=== PATIENT | male | born 1985 | race Caucasian/White ===

== ENCOUNTER 2016-09-18 16:58 | Emergency (ER) | payer OTHER ==
[~2016-09-18] VITALS: Ht 180.3 cm; Wt 160.3 kg
[2016-09-18 17:35] VITALS: BP 140/80
--- NOTE | 2016-09-18 19:17 | NUR ---
Patient ambulated to bed 3. RN evaluating patient at bedside.
--- NOTE | 2016-09-18 19:23 | NUR ---
31 Y/O M W/C/O L LOWER ABD PAIN WHICH RADIATES TO L LOWER BACK X 3 DAYS. DENIES ANY FEVER, CHILLS OR PAIN WITH URINATION. NO MED HX. NO S/S OF DISTRESS NOTED, ER MADE AWARE.
[2016-09-18] MEDS ORDERED: HYDROcodone/APAP 5/325 MG 1 TAB TAB PO ONE (19:50)
[2016-09-18] MEDS ORDERED: KETOROLAC 30 MG/ML VIAL IM ONE (19:50)
--- NOTE | 2016-09-18 20:03 | NUR ---
PT TAKEN FOR CT.
[2016-09-18 20:12] LABS: APPEARANCE,URINE CLOUDY (CLEAR); BILIRUBIN,URINE NEGATIVE (NEGATIVE); BLOOD, URINE 3+ (NEGATIVE); COLOR,URINE YELLOW (YELLOW); LEUKOCYTE ESTERASE ,URINE NEGATIVE (NEGATIVE); NITRITE, URINE NEGATIVE (NEGATIVE); PROTEIN,URINE 1+ (NEGATIVE); UGLUCOSE NEGATIVE (NEGATIVE); UROBILINOGEN,URINE 0.2 EU/dL (0.2 - 1)
[2016-09-18 20:18] LABS: BACTERIA,URINE 1-9 (FEW) /HPF (None Seen); RBC,URINE >100 /HPF (0-5); SQUAMOUS EPITHELIAL CELL,UR 0-3 (FEW) /LPF (0-3 (FEW))
--- NOTE | 2016-09-18 20:18 | NUR ---
MOVED TO ER BED 4
[2016-09-18] MEDS ORDERED: NACL 0.9% 1,000 ML IV ONE (20:40)
[2016-09-18] MEDS ORDERED: fentaNYL 0.05 MG/ML VIAL IVP ONE (20:40)
[2016-09-18] MEDS ORDERED: metroNIDAZOLE 500 MG/NS PREMIX 100 ML IV ONE (20:40)
[2016-09-18] MEDS ORDERED: KETOROLAC 30 MG/ML VIAL IVP ONE (20:40)
[2016-09-18 21:05] LABS: BASOPHILS # (AUTO) 0.4 K/uL (0.00-0.22); EOSINOPHILS # (AUTO) 0.2 K/uL (0-0.4); EOSINOPHILS % (AUTO) 2.2 % (0.0-4.0); HEMOGLOBIN 15.6 g/dL (12.0-18.0); LYMPHOCYTES # (AUTO) 2.4 K/uL (2.0-11.5); LYMPHOCYTES % (AUTO) 23.1 % (20.5-51.1); MEAN CORPUSCULAR HEMOGLOBIN 30 pg (27-31); MEAN CORPUSCULAR HGB CONC 33 g/dL (33-37); MEAN CORPUSCULAR VOLUME 93 fL (80-94); MONOCYTES % (AUTO) 9.9 % (1.7-9.3); NEUTROPHILS # (AUTO) 6.2 K/uL (1.8-7.7); PLATELET COUNT (AUTO) 259 K/uL (140-450); RED BLOOD CELL COUNT(AUTO) 5.15 MIL/uL (4.20-6.10); RED CELL DISTRIBUTION WIDTH 13.3 % (11.6-13.7); WHITE BLOOD COUNT (AUTO) 10.2 K/uL (4.8-10.8)
[2016-09-18 21:14] LABS: ANION GAP 10.8 (8-16); CALCIUM 8.7 mg/dL (8.5-10.1); CARBON DIOXIDE 30.5 mmol/L (21-32); CREATININE 1.2 mg/dL (0.7-1.3); POTASSIUM 4.3 mmol/L (3.5-5.1)
--- NOTE | 2016-09-18 21:15 | NUR ---
PT RESTING IN BED, VSS, CURRENTLY RECEIVING IV MEDS. NO S/S OF DISTRESS NOTED AT THE MOMENT.
[2016-09-18 21:21] LABS: ALBUMIN 3.6 g/dL (3.4-5.0); TOTAL BILIRUBIN 0.3 mg/dL (0.0-1.0); TOTAL PROTEIN, SERUM 7.5 g/dL (6.4-8.2)
--- NOTE | 2016-09-18 22:03 | NUR ---
Patient discharged with v/s stable. Written and verbal after care instructions given and explained. Patient alert, oriented and verbalized understanding of instructions. Ambulatory with steady gait. All questions addressed prior to discharge. ID band removed. Patient advised to follow up with PMD OR RETURN TO ER IF CONDITION WORSENS. Rx of NORCO, NAPROSYN, FLAGYL, FLOMAX given. Patient educated on indication of medication including possible reaction and side effects. Opportunity to ask questions provided and answered.
[2016-09-18 22:04] VITALS: BP 120/62
== END 2016-09-18 22:03 | disposition home or self-care (01) ==
LOC: MED 16:58
DX: N20.1 Calculus of ureter (principal); K57.92 Diverticulitis of intestine, part unspecified, without perforation or abscess without bleeding
CPT/HCPCS: 36415; 74176; 80053; 81001; 83690; 85025; 87086; 96365; 96372; 96375; 99285; J1885; J3010; J3490; J7030

== ENCOUNTER 2016-11-04 17:40 | Emergency (ER) | payer OTHER ==
[~2016-11-04] VITALS: Ht 177.8 cm; Wt 158.3 kg
[2016-11-04 17:48] VITALS: BP 154/103
--- NOTE | 2016-11-04 18:57 | NUR ---
PATIENT AMBULATED TO ER BED 4.
[2016-11-04] MEDS ORDERED: BUPIVACAINE-MPF 0.5% 10 ML VIAL INJ ONE (19:15)
[2016-11-04] MEDS ORDERED: SODIUM BICARBONATE 8.4% 50 MEQ/50 ML VIAL INJ ONE (19:15)
--- NOTE | 2016-11-04 19:15 | NUR ---
PATIENT PRESENTS TO ED WITH C/O LEFT FACIAL PAIN, TOOTH ACHE. PT DENIES N/V/D; SKIN IS PINK/WARM/DRY; AAOX4 WITH EVEN AND STEADY GAIT; LUNGS CLEAR BL; HR EVEN AND REGULAR; PT DENIES ANY FEVER, CP, SOB, OR COUGH AT THIS TIME; PATIENT STATES PAIN OF 10/10 AT THIS TIME; VSS; PATIENT POSITIONED FOR COMFORT; HOB ELEVATED; BEDRAILS UP X2; BED DOWN. ER MD MADE AWARE OF PT STATUS.
[2016-11-04] MEDS ORDERED: SODIUM BICARBONATE 8.4% PFS 50 MEQ/50 ML SYR IVP ONE (19:40)
--- NOTE | 2016-11-04 20:14 | NUR ---
PT AWAITING ER .
--- NOTE | 2016-11-04 20:20 | NUR ---
ER AT BEDSIDE
[2016-11-04] MEDS ORDERED: ceFAZolin 1,000 MG VIAL IM ONE (20:25)
[2016-11-04] MEDS ORDERED: WATER STERILE 10 ML MC ONE (20:41)
--- NOTE | 2016-11-04 20:44 | NUR ---
Patient discharged with v/s stable. Written and verbal after care instructions given and explained. Patient alert, oriented and verbalized understanding of instructions. Ambulatory with steady gait. All questions addressed prior to discharge. ID band removed. Patient advised to follow up with PMD. Rx of TRAMADOL AND AUGMENTIN given. Patient educated on indication of medication including possible reaction and side effects. Opportunity to ask questions provided and answered.
[2016-11-04 20:45] VITALS: BP 150/93
== END 2016-11-04 18:57 | disposition home or self-care (01) ==
LOC: MED 17:40
DX: K02.9 Dental caries, unspecified (principal)
CPT/HCPCS: 64400; 96372; 96374; 99284; J0690; J3490

== ENCOUNTER 2019-09-27 11:55 | Emergency (ER) | payer OTHER ==
[~2019-09-27] VITALS: Ht 180.3 cm; Wt 154.7 kg
[2019-09-27 12:05] VITALS: BP 145/86
--- NOTE | 2019-09-27 12:34 | NUR ---
34 Y/O MALE C/O PALPITATIONS AND CHEST PAIN STARTING YESTERDAY. PT STATES HE WAS AT REST WHEN PAIN BEGAN, DENIES ANY CAFFEINE, ALCOHOL OR REC DRUG USE. PT STATES HE SUDDENLY FELT HIS HEART START BEATING RAPIDLY. DENIES ANY SOB/COUGH. DENIES ANY N/V/D. RESP EVEN AND UNLABORED. VSS. NO PMH NKA
--- NOTE | 2019-09-27 12:39 | NUR ---
XRAY AT BEDSIDE
[2019-09-27 12:52] LABS: BASOPHILS # (AUTO) 0.1 K/uL (0.00-0.22); BASOPHILS % (AUTO) 1.1 % (0.0-2.0); EOSINOPHILS # (AUTO) 0.1 K/uL (0-0.4); EOSINOPHILS % (AUTO) 1.4 % (0.0-4.0); HEMATOCRIT 45.4 % (36-52); HEMOGLOBIN 15.3 g/dL (12.0-18.0); LYMPHOCYTES # (AUTO) 1.6 K/uL (2.0-11.5); MEAN CORPUSCULAR HEMOGLOBIN 33 pg (27-31); MEAN CORPUSCULAR HGB CONC 34 g/dL (33-37); MEAN CORPUSCULAR VOLUME 99.2 fL (80-94); MONOCYTES # (AUTO) 0.6 K/uL (0.8-1.0); MONOCYTES % (AUTO) 11.1 % (1.7-9.3); NEUTROPHILS % (AUTO) 56.4 % (42.2-75.2); PLATELET COUNT (AUTO) 185 K/uL (140-450); RED BLOOD CELL COUNT(AUTO) 4.58 MIL/uL (4.20-6.10); RED CELL DISTRIBUTION WIDTH 13.9 % (11.6-13.7); WHITE BLOOD COUNT (AUTO) 5.3 K/uL (4.8-10.8)
[2019-09-27 12:55] LABS: APPEARANCE,URINE CLEAR (CLEAR); BILIRUBIN,URINE NEGATIVE (NEGATIVE); BLOOD, URINE NEGATIVE (NEGATIVE); COLOR,URINE YELLOW (YELLOW); LEUKOCYTE ESTERASE ,URINE NEGATIVE (NEGATIVE); NITRITE, URINE NEGATIVE (NEGATIVE); UGLUCOSE NEGATIVE (NEGATIVE)
[2019-09-27 13:38] LABS: ALBUMIN 3.6 g/dL (3.4-5.0); ANION GAP 11.2 (8-16); CARBON DIOXIDE 30.5 mmol/L (21-32); CREATININE 0.9 mg/dL (0.6-1.3); FREE T4 (FREE THYROXINE) 0.65 ng/dL (0.76-1.46); POTASSIUM 3.7 mmol/L (3.5-5.1); THYROID STIMULATING HORMONE 28.71 uIU/mL (0.34-3.74); TOTAL BILIRUBIN 1.2 mg/dL (0.0-1.0)
[2019-09-27 14:11] VITALS: BP 125/72
--- NOTE | 2019-09-27 14:12 | NUR ---
Patient discharged with v/s stable. Written and verbal after care instructions given and explained. Patient verbalized understanding. Ambulatory with steady gait. All questions addressed prior to discharge. Advised to follow up with PMD.
[2019-09-27 14:33] LABS: BARBITURATE, URINE NEGATIVE ng/ml (NEG <=200); BENZODIAZEPINE, URINE NEGATIVE ng/mL (NEG <=200); CANNABINOID, URINE NEGATIVE ng/mL (NEG <=50); COCAINE, URINE NEGATIVE ng/mL (NEG <=300); OPIATE, URINE NEGATIVE ng/mL (NEG <=2000); PHENCYCLIDINE SCREEN,URINE NEGATIVE ng/mL (NEG <=25)
== END 2019-09-27 14:12 | disposition home or self-care (01) ==
LOC: MED 11:55
DX: R00.2 Palpitations (principal); R07.9 Chest pain, unspecified; E07.9 Disorder of thyroid, unspecified; K76.0 Fatty (change of) liver, not elsewhere classified
CPT/HCPCS: 36415; 71045; 80053; 80305; 81003; 84439; 84443; 84484; 85025; 93005; 99285; Q0092

== ENCOUNTER 2020-04-29 12:20 | Emergency (ER) | payer OTHER ==
[~2020-04-29] VITALS: Ht 177.8 cm; Wt 154.2 kg
[2020-04-29 12:25] VITALS: BP 159/103
--- NOTE | 2020-04-29 13:21 | NUR ---
CONSENT FOR CT SIGNED AND PLACED IN CHART.
[2020-04-29 13:28] LABS: BASOPHILS # (AUTO) 0.1 K/uL (0.00-0.22); BASOPHILS % (AUTO) 0.9 % (0.0-2.0); EOSINOPHILS % (AUTO) 0.4 % (0.0-4.0); HEMATOCRIT 43.2 % (36-52); HEMOGLOBIN 14.6 g/dL (12.0-18.0); LYMPHOCYTES # (AUTO) 1.3 K/uL (2.0-11.5); LYMPHOCYTES % (AUTO) 21.5 % (20.5-51.1); MEAN CORPUSCULAR HEMOGLOBIN 34 pg (27-31); MEAN CORPUSCULAR HGB CONC 34 g/dL (33-37); MEAN CORPUSCULAR VOLUME 101.3 fL (80-94); MONOCYTES # (AUTO) 0.5 K/uL (0.8-1.0); MONOCYTES % (AUTO) 8.8 % (1.7-9.3); NEUTROPHILS # (AUTO) 4.2 K/uL (1.8-7.7); NEUTROPHILS % (AUTO) 68.4 % (42.2-75.2); PLATELET COUNT (AUTO) 202 K/uL (140-450); RED BLOOD CELL COUNT(AUTO) 4.26 MIL/uL (4.20-6.10); RED CELL DISTRIBUTION WIDTH 14.8 % (11.6-13.7); WHITE BLOOD COUNT (AUTO) 6.2 K/uL (4.8-10.8)
[2020-04-29 13:43] LABS: PROTHROMBIN TIME 11.1 secs (10.8-13.4)
[2020-04-29 13:50] LABS: ALBUMIN 3.7 g/dL (3.4-5.0); ANION GAP 15.3 (8-16); CARBON DIOXIDE 25.1 mmol/L (21-32); CREATININE 0.7 mg/dL (0.6-1.3); POTASSIUM 3.4 mmol/L (3.5-5.1); TOTAL BILIRUBIN 1.9 mg/dL (0.0-1.0)
[2020-04-29 13:55] LABS: D-DIMER < 100 ng/ml (0-400)
[2020-04-29 15:16] LABS: APPEARANCE,URINE CLEAR (CLEAR); BILIRUBIN,URINE 1+ (NEGATIVE); BLOOD, URINE NEGATIVE (NEGATIVE); COLOR,URINE YELLOW (YELLOW); LEUKOCYTE ESTERASE ,URINE NEGATIVE (NEGATIVE); NITRITE, URINE NEGATIVE (NEGATIVE); PH,URINE 8.5 (5.0-9.0); UGLUCOSE NEGATIVE (NEGATIVE)
--- NOTE | 2020-04-29 16:36 | NUR ---
Patient discharged with v/s stable, IN NAD, AMBULATED WITH STEADY GAIT. ID BAND REMOVED, IV ACCESS D/C'D BEFORE DEPARTURE. Written and verbal after care instructions given and explained. Patient verbalized understanding. Ambulatory with steady gait. All questions addressed prior to discharge. Advised to follow up with PMD. PT IN AGREEMENT WITH PLAN OF CARE
== END 2020-04-29 16:36 | disposition home or self-care (01) ==
LOC: MED 12:20
DX: S30.1XXA Contusion of abdominal wall, initial encounter (principal); M54.5 Low back pain; E03.9 Hypothyroidism, unspecified; Z20.822 Contact with and (suspected) exposure to COVID-19; X58.XXXA Exposure to other specified factors, initial encounter; Y93.89 Activity, other specified; Y92.89 Other specified places as the place of occurrence of the external cause; Y99.8 Other external cause status
CPT/HCPCS: 36415; 71275; 74174; 80053; 81003; 83880; 84443; 84484; 85025; 85379; 85610; 87426; 99285; Q9967

== ENCOUNTER 2020-08-09 13:17 | Emergency (ER) | payer OTHER ==
[~2020-08-09] VITALS: Ht 177.8 cm; Wt 168.7 kg
[2020-08-09 13:21] VITALS: BP 147/100
[2020-08-09] MEDS ORDERED: KETOROLAC 30 MG/ML VIAL IVP ONE (14:20)
[2020-08-09] MEDS ORDERED: MORPHINE SULFATE 4 MG/ML SYR IVP ONE (14:20)
[2020-08-09] MEDS ORDERED: NACL 0.9% 1,000 ML IV ONE (14:20)
[2020-08-09] MEDS ORDERED: ONDANSETRON 4 MG/2 ML VIAL IVP ONE (14:35)
[2020-08-09 14:51] LABS: BASOPHILS # (AUTO) 0.1 K/uL (0.00-0.22); BASOPHILS % (AUTO) 0.7 % (0.0-2.0); EOSINOPHILS # (AUTO) 0.1 K/uL (0-0.4); EOSINOPHILS % (AUTO) 1.2 % (0.0-4.0); HEMATOCRIT 43.5 % (36-52); HEMOGLOBIN 14.7 g/dL (12.0-18.0); LYMPHOCYTES # (AUTO) 1.9 K/uL (2.0-11.5); LYMPHOCYTES % (AUTO) 26.3 % (20.5-51.1); MEAN CORPUSCULAR HEMOGLOBIN 35 pg (27-31); MEAN CORPUSCULAR HGB CONC 34 g/dL (33-37); MEAN CORPUSCULAR VOLUME 103.7 fL (80-94); MONOCYTES # (AUTO) 0.7 K/uL (0.8-1.0); MONOCYTES % (AUTO) 10.1 % (1.7-9.3); NEUTROPHILS # (AUTO) 4.5 K/uL (1.8-7.7); NEUTROPHILS % (AUTO) 61.7 % (42.2-75.2); PLATELET COUNT (AUTO) 270 K/uL (140-450); RED BLOOD CELL COUNT(AUTO) 4.19 MIL/uL (4.20-6.10); RED CELL DISTRIBUTION WIDTH 14.6 % (11.6-13.7); WHITE BLOOD COUNT (AUTO) 7.4 K/uL (4.8-10.8)
[2020-08-09 15:07] LABS: BILIRUBIN,URINE NEGATIVE (NEGATIVE); BLOOD, URINE TRACE-L (NEGATIVE); COLOR,URINE YELLOW (YELLOW); LEUKOCYTE ESTERASE ,URINE NEGATIVE (NEGATIVE); NITRITE, URINE NEGATIVE (NEGATIVE); UGLUCOSE NEGATIVE (NEGATIVE)
[2020-08-09 15:12] LABS: ANION GAP 13.1 (8-16); CARBON DIOXIDE 25.7 mmol/L (21-32); CREATININE 0.6 mg/dL (0.6-1.3); POTASSIUM 3.8 mmol/L (3.5-5.1)
[2020-08-09 15:18] LABS: APPEARANCE,URINE HAZY (CLEAR)
[2020-08-09 16:05] LABS: RBC,URINE 0-5 /HPF (0-5); WBC,URINE 0-5 /HPF (0-5)
[2020-08-09 16:06] LABS: URINE AMORPHOUS URATE 1+ /HPF (None Seen)
[2020-08-09] MEDS ORDERED: ONDA-24 PO (16:27)
[2020-08-09] MEDS ORDERED: ACET-8386 PO (16:27)
[2020-08-09] MEDS ORDERED: TAMS0.4C96 PO (16:27)
[2020-08-09 16:40] VITALS: BP 147/100
== END 2020-08-09 16:41 | disposition home or self-care (01) ==
LOC: MED 13:17
DX: R10.9 Unspecified abdominal pain (principal); R31.9 Hematuria, unspecified; E07.9 Disorder of thyroid, unspecified; Z87.442 Personal history of urinary calculi
CPT/HCPCS: 36415; 76770; 80048; 81001; 85025; 96374; 96375; 99284; J1885; J2270; J2405; J7030

== ENCOUNTER 2021-03-17 11:52 | Emergency (ER) | payer OTHER ==
[~2021-03-17] VITALS: Ht 177.8 cm; Wt 142.9 kg
[~2021-03-17 11:52] MED LIST: ACET-8386 PO; ONDA-188 PO; TAMS0.4C96 PO
[2021-03-17 12:07] VITALS: BP 147/99
[2021-03-17] MEDS ORDERED: PROM118S5 PO (14:50)
[2021-03-17] MEDS ORDERED: NAPR-54 PO (14:50)
--- NOTE | 2021-03-17 14:55 | NUR ---
Patient discharged with v/s stable. Written and verbal after care instructions ABOUT COVID 19 given and explained. Patient alert, oriented and verbalized understanding of instructions. Ambulatory with steady gait. All questions addressed prior to discharge. ID band removed. Patient advised to follow up with PMD. Rx of NAPROXEN AND PROMETHAZINE DM given. Patient educated on indication of medication including possible reaction and side effects. Opportunity to ask questions provided and answered.
== END 2021-03-17 14:55 | disposition home or self-care (01) ==
LOC: MED 11:52
DX: U07.1 COVID-19 (principal); E07.9 Disorder of thyroid, unspecified; Z79.899 Other long term (current) drug therapy; Z98.84 Bariatric surgery status
CPT/HCPCS: 99283

== ENCOUNTER 2022-02-22 06:11 | Day surgery (SDC) | payer OTHER ==
[~2022-02-22] VITALS: Ht 177.8 cm; Wt 165.6 kg
[~2022-02-22 06:11] MED LIST changes: -ACET-8386 PO; +ACET-8905 PO; +NAPR-54 PO; +PROM118S5 PO
[2022-02-22] MEDS ORDERED: BUPIVACAINE-MPF 0.25% 30 ML VIAL INJ ONE (08:08)
[2022-02-22] MEDS ORDERED: LIDOCAINE 1% 500 MG/50 ML VIAL ONE (08:08)
[2022-02-22] MEDS ORDERED: fentaNYL citrate 0.05 MG/ML VIAL ONE (08:31)
[2022-02-22] MEDS ORDERED: SUCCINYLCHOLINE CHLORIDE 200 MG/10 ML VIAL IVP ONE ×2 (09:06→09:07)
[2022-02-22] MEDS ORDERED: PROPOFOL 200 MG/20 ML VIAL IV ONE ×2 (09:06)
[2022-02-22] MEDS ORDERED: GELATIN SPONGE 100 1 SPG TP ONE (09:08)
[2022-02-22] MEDS ORDERED: ONDANSETRON 4 MG/2 ML VIAL ONE (09:09)
[2022-02-22] MEDS ORDERED: KETOROLAC 30 MG/ML VIAL ONE (09:09)
[2022-02-22] MEDS: HYDROmorphone 1 MG/ML AMP IVP PRN ×4 (09:50→10:20)
[2022-02-22] MEDS ORDERED: HYDROmorphone PFS 2 MG/ML SYR ONE (09:53)
[2022-02-22] MEDS ORDERED: LACTATED RINGERS 1,000 ML IV SCH (09:55)
[2022-02-22] MEDS ORDERED: hydrALAZINE 20 MG/ML VIAL IVP PRN (09:56)
[2022-02-22] MEDS ORDERED: METOCLOPRAMIDE 10 MG/2 ML INJ VIAL IVP PRN (09:56)
[2022-02-22] MEDS ORDERED: LABETALOL 20 MG/4 ML VIAL IVP PRN (09:56)
== END 2022-02-22 11:05 | disposition home or self-care (01) ==
LOC: MOR 06:11 → MMU 07:21 → MOR 11:05
PROVIDERS: ATTEND Surgery
DX: K60.2 Anal fissure, unspecified (principal); K64.9 Unspecified hemorrhoids; K64.8 Other hemorrhoids; Z79.899 Other long term (current) drug therapy; Z20.822 Contact with and (suspected) exposure to COVID-19
CPT/HCPCS: 46200; 46250; 71045; 87426; 88304; 93005; J0330; J1170; J1885; J2001; J2405; J2704; J3010; J3490

== ENCOUNTER 2023-02-13 10:33 | Emergency (ER) | payer OTHER ==
[~2023-02-13] VITALS: Ht 175.3 cm; Wt 113.4 kg
[2023-02-13 10:58] VITALS: BP 120/72; PULSE 88; RESP 18; TEMP 98; O2SAT 98
[2023-02-13 12:08] LABS: APPEARANCE,URINE CLEAR (CLEAR); BILIRUBIN,URINE 3+ (NEGATIVE); BLOOD, URINE NEGATIVE (NEGATIVE); COLOR,URINE YELLOW (YELLOW); LEUKOCYTE ESTERASE ,URINE NEGATIVE (NEGATIVE); NITRITE, URINE POSITIVE (NEGATIVE); PH,URINE 6.5 (5.0-9.0); PROTEIN,URINE TRACE (NEGATIVE); UGLUCOSE NEGATIVE (NEGATIVE)
[2023-02-13 12:09] LABS: HEMATOCRIT 27.3 % (36-52); HEMOGLOBIN 8.9 g/dL (12.0-18.0); MEAN CORPUSCULAR HEMOGLOBIN 28 pg (27-31); MEAN CORPUSCULAR HGB CONC 32 g/dL (33-37); MEAN CORPUSCULAR VOLUME 87.5 fL (80-94); PLATELET COUNT (AUTO) 198 K/uL (140-450); RED BLOOD CELL COUNT(AUTO) 3.12 MIL/uL (4.20-6.10); RED CELL DISTRIBUTION WIDTH 28.3 % (11.6-13.7); WHITE BLOOD COUNT (AUTO) 11.3 K/uL (4.8-10.8)
[2023-02-13 12:15] LABS: ICTOTEST POSITIVE (NEGATIVE)
[2023-02-13 12:17] LABS: RBC,URINE 0-5 /HPF (0-5); WBC,URINE 0-5 /HPF (0-5)
[2023-02-13 12:18] LABS: BACTERIA,URINE FEW /HPF (None Seen); SQUAMOUS EPITHELIAL CELL,UR 0-3 (FEW) /LPF (0-3 (FEW))
[2023-02-13 12:28] LABS: ALBUMIN 2.2 g/dL (3.4-5.0); ANION GAP 10.6 (8-16); CALCIUM 7.6 mg/dL (8.5-10.1); CARBON DIOXIDE 25.9 mmol/L (21-32); CREATININE 0.9 mg/dL (0.6-1.3); POTASSIUM 3.5 mmol/L (3.5-5.1); TOTAL BILIRUBIN 8.2 mg/dL (0.0-1.0); TOTAL PROTEIN, SERUM 6.3 g/dL (6.4-8.2)
[2023-02-13 12:37] LABS: EOSINOPHILS % (MANUAL) 8 % (0-4); MONOCYTES % (MANUAL) 3 % (5-12)
[2023-02-13 12:38] LABS: LYMPHOCYTES % (MANUAL) 20 % (20-46)
[2023-02-13] MEDS ORDERED: ACETAMINOPHEN 325 MG TAB PO ONE (13:40)
[2023-02-13] MEDS ORDERED: KETOROLAC 30 MG/ML VIAL IM ONE (13:40)
[2023-02-13] MEDS ORDERED: IBUP-2213 PO (13:49)
[2023-02-13] MEDS ORDERED: CEPH-588 PO (13:49)
== END 2023-02-13 15:15 | disposition home or self-care (01) ==
LOC: MED 10:33
DX: K74.60 Unspecified cirrhosis of liver (principal); E80.7 Disorder of bilirubin metabolism, unspecified; E03.9 Hypothyroidism, unspecified; Z98.890 Other specified postprocedural states; Z79.899 Other long term (current) drug therapy; Z79.2 Long term (current) use of antibiotics; Z79.1 Long term (current) use of non-steroidal anti-inflammatories (NSAID)
CPT/HCPCS: 36415; 74176; 80053; 81001; 83690; 85025; 96372; 99285; J1885

== ENCOUNTER 2023-02-24 10:08 | Emergency (ER) | payer OTHER ==
[~2023-02-24] VITALS: Ht 177.8 cm; Wt 158.3 kg
[~2023-02-24 10:08] MED LIST changes: +CEPH-588 PO; +IBUP-2213 PO
[2023-02-24 10:52] VITALS: BP 130/78; PULSE 102; RESP 22; TEMP 99.3; O2SAT 100
[2023-02-24 11:30] LABS: HEMATOCRIT 28.2 % (36-52); HEMOGLOBIN 9.4 g/dL (12.0-18.0); MEAN CORPUSCULAR HEMOGLOBIN 30 pg (27-31); MEAN CORPUSCULAR HGB CONC 33 g/dL (33-37); MEAN CORPUSCULAR VOLUME 91.4 fL (80-94); PLATELET COUNT (AUTO) 129 K/uL (140-450); RED BLOOD CELL COUNT(AUTO) 3.08 MIL/uL (4.20-6.10); RED CELL DISTRIBUTION WIDTH 28.5 % (11.6-13.7); WHITE BLOOD COUNT (AUTO) 9.1 K/uL (4.8-10.8)
[2023-02-24 11:50] VITALS: O2SAT 97
[2023-02-24 11:55] LABS: CALCIUM 7.9 mg/dL (8.5-10.1); CARBON DIOXIDE 24.5 mmol/L (21-32); CREATININE 0.8 mg/dL (0.6-1.3); POTASSIUM 3.5 mmol/L (3.5-5.1); TOTAL BILIRUBIN 6.2 mg/dL (0.0-1.0); TOTAL PROTEIN, SERUM 6.3 g/dL (6.4-8.2)
[2023-02-24] MEDS: FUROSEMIDE 40 MG/4 ML VIAL IVP ONE (11:58)
[2023-02-24 12:03] LABS: BASOPHILS % (MANUAL) 0 % (0-2); BLASTS, MANUAL % 0 % (0-0); EOSINOPHILS % (MANUAL) 29 % (0-4); LYMPHOCYTES % (MANUAL) 24 % (20-46); METAMYELOCYTES % 0 % (0-0); MONOCYTES % (MANUAL) 0 % (5-12); MYELOCYTES % 0 % (0-0); OTHER CELLS,MANUAL % 0 (0-0); PLATELET ESTIMATE SLIGHTLY DECREASED; PROMYELOCYTES % 0 % (0-0)
[2023-02-24 12:05] LABS: ANISOCYTOSIS 3+; OVALOCYTES 2+; TARGET CELLS 1+
[2023-02-24 13:22] LABS: APPEARANCE,URINE CLEAR (CLEAR); BILIRUBIN,URINE 2+ (NEGATIVE); BLOOD, URINE NEGATIVE (NEGATIVE); COLOR,URINE YELLOW (YELLOW); LEUKOCYTE ESTERASE ,URINE NEGATIVE (NEGATIVE); NITRITE, URINE POSITIVE (NEGATIVE); PROTEIN,URINE NEGATIVE (NEGATIVE); UGLUCOSE NEGATIVE (NEGATIVE)
[2023-02-24 13:34] LABS: BACTERIA,URINE FEW /HPF (None Seen); MUCUS,URINE 1+ /LPF (None Seen); RBC,URINE 0-5 /HPF (0-5); SQUAMOUS EPITHELIAL CELL,UR 0-3 (FEW) /LPF (0-3 (FEW)); WBC,URINE 0-5 /HPF (0-5)
[2023-02-24 13:38] LABS: ICTOTEST POSITIVE (NEGATIVE)
[2023-02-24 14:40] VITALS: BP 132/83; PULSE 88; RESP 13
[2023-02-24 15:56] VITALS: O2SAT 100
== END 2023-02-24 14:40 | disposition home or self-care (01) ==
LOC: MED 10:08
DX: R60.1 Generalized edema (principal); R74.01 Elevation of levels of liver transaminase levels; R10.30 Lower abdominal pain, unspecified; E03.9 Hypothyroidism, unspecified; Z79.899 Other long term (current) drug therapy
CPT/HCPCS: 36415; 80053; 81001; 83690; 85025; 96374; 99283; J1940